=== PATIENT | male | born 1995 | race Caucasian/White ===

== ENCOUNTER 2017-12-17 23:33 | Emergency (ER) | payer OTHER ==
[~2017-12-17] VITALS: Ht 182.9 cm; Wt 81.3 kg
[2017-12-17 23:35] VITALS: TEMP 36.5; Ht 182.9 cm; Wt 81.3 kg
[2017-12-18] MEDS ORDERED: ACETAMINOPHEN 500 MG TAB PO STA (00:04)
[2017-12-18] MEDS ORDERED: IBUPROFEN 600 MG TAB PO STA (00:04)
[2017-12-18 01:06] VITALS: BP 133/85; PULSE 90; O2SAT 96
--- NOTE | 2017-12-18 04:22 | EMERGENCY ROOM VISIT NOTE ---
ED Visit Note First contact with patient: 23:56 CHIEF COMPLAINT: Wrist injury HISTORY OF PRESENT ILLNESS: This 22-year-old male patient presents to the emergency department complaining of pain in the right wrist after turning and striking the wrist off a piece of furniture about 1 hour ago. The patient is able to move their wrist. The patient states the pain is dull and 7/10. No laceration, no weakness. No numbness or tingling. The patient denies any other injury. The patient is able to move their fingers and elbow without difficulty. The patient has not had a previous fracture to this wrist. The patient has taken nothing for the pain. REVIEW OF SYSTEMS: A 6 system review of systems was performed with positives and pertinent negatives in the HPI. ALLERGIES: No known allergies MEDICATIONS: No chronic medication PMH: Otherwise healthy SOCIAL HISTORY: Lives [place] PHYSICAL EXAM: Vital Signs: Reviewed Nurse's notes, vital signs stable. GENERAL : White male, in no acute distress, but appears to be in pain, well-developed, well-neurished. NEURO: Alert and oriented to person place and time. Normal sensation to light and sharp touch. MUSCULOSKELETAL: There is no deformity of the right wrist. There is tenderness and edema over the distal radius. There is no snuff box tenderness. Range of motion is normal. There is no tenderness of the elbow, hand or fingers. Mine Surveyor strength 5/5. Radial pulse 2+. SKIN: Normal and intact. The hand is warm and well perfused with capillary refill less than 2 seconds. EMERGENCY DEPARTMENT COURSE: Physical exam and history were performed. Nursing notes and EMR the patient appears to have a contusion type injury to his right wrist causing him pain tonight. X-ray was performed and reviewed by myself as showing no acute fracture or dislocation. Overall the patient appears well for discharge home. I did explain that his x-ray will be reread in the morning, and if there is any discrepancy we would contact him. Overall the patient appears well for discharge home. He was given a wrist brace for comfort. He may otherwise use ibuprofen and Tylenol for pain control. He was invited back to the ER with any new, worsening, or concerning symptoms. Vital Signs Date Time Temp Pulse Resp B/P (MAP) Pulse Ox O2 Delivery O2 Flow Rate FiO2 12/18/17 01:06 90 18 133/85 96 12/17/17 23:35 36.5 68 18 140/77 96 Room Air Medications Administered Medications (Trade) Dose Ordered Sig/Kole Route Start Time Stop Time Status Last Admin Dose Admin Acetaminophen (Tylenol Tab) 1,000 mg NOW STAT PO 12/18/17 00:04 12/18/17 00:05 DC 12/18/17 00:36 1,000 MG Ibuprofen (Motrin Tab) 600 mg NOW STAT PO 12/18/17 00:04 12/18/17 00:05 DC 12/18/17 00:36 600 MG Departure Information Impression Primary Impression: Injury of right wrist Dispostion Home / Self-Care Condition GOOD Forms HOME CARE DOCUMENTATION FORM, IMPORTANT VISIT INFORMATION Patient Instructions My [facility] Additional Instructions You were seen and evaluated today on an emergency basis only. This is not a substitute for, or an effort to provide, complete comprehensive medical care. It is not possible to recognize and treat all injuries or illnesses in a single emergency department visit. For this reason it is recommended that you followup with [facility], Dr. Todd's office, with any ongoing or persisting symptoms. For baseline pain relief you may alternate ibuprofen and acetaminophen every 4 hours for pain control. Take 600 mg ibuprofen (Advil) and then 4 hours later take 1000 mg acetaminophen (Tylenol). Do not take more than 3000 mg acetaminophen in a single day. Wear your wrist brace for comfort. You are welcome to return to the emergency department anytime with new, worsening, or concerning symptoms.
--- NOTE | 2017-12-18 06:42 | DIAGNOSTIC IMAGING REPORT ---
R WRIST MIN 3 VIEWS ROUTINE HISTORY: 22 years-old Male right wrist injury acute right wrist pain status post injury COMPARISON: None available TECHNIQUE: 4 views of the right wrist FINDINGS: No acute fracture, dislocation, significant degenerative changes or opaque foreign body. Suggestion of mild dorsal wrist soft tissue swelling. IMPRESSION: Mild dorsal wrist soft tissue swelling without acute fracture. The above report was generated using voice recognition software. It may contain grammatical, syntax or spelling errors. Electronically signed by: Glenn Lua M.D. 12/18/2017 6:41 AM Dictated Date/Time: 12/18/2017 6:40 AM
== END 2017-12-18 01:08 | disposition home or self-care (01) ==
LOC: C.EDB 23:34 → C.EDC 12-18 01:08
DX: S60.211A Contusion of right wrist, initial encounter (principal); W22.8XXA Striking against or struck by other objects, initial encounter